=== PATIENT | male | born 1955 | race Caucasian/White ===

== ENCOUNTER 2019-11-09 16:29 | Emergency (ER) | payer OTHER, SELFPAY ==
[2019-11-09 16:38] VITALS: BP 146/79; PULSE 85; RESP 18; TEMP 37.1; O2SAT 98
--- NOTE | 2019-11-09 16:44 | ED.GENADULT ---
HPI - General Adult General Chief complaint: Weakness Stated complaint: body aches/difficulty lifting arms Source: patient and RN notes reviewed Mode of arrival: ambulatory Limitations: no limitations History of Present Illness HPI narrative: This is a 64 years old male presents to the office for an evaluation of generalize weakness for about three weeks. He also reports that his right shoulder is very painful and weaker than usual. States, he could not make a fist this morning due to pain; however it gets better since he took ibuprofen. Denies any unusual activity or strenuous activity or recent injury to his shoulder/arm. He has point of tenderness on his right hand due to carpal tunnel. 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 He also was prescribed Gabapentin for his restless legs and left facial nerve pain back in May. However, he has been taking them like he supposed to until about 3 weeks ago. He also reports night sweat. He recently had colonoscopy; which was normal. He has an appointment with his doctor next Wednesday. Related Data Home Medications Medication Instructions Recorded Confirmed aspirin 81 mg PO DAILY 11/09/19 11/09/19 gabapentin 600 mg PO HS 11/09/19 11/09/19 psyllium seed (with dextrose) 3.4 g PO BID 11/09/19 11/09/19 [fiber] Allergies Allergy/AdvReac Type Severity Reaction Status Date / Time Penicillins Allergy Dyspnea / Verified 11/09/19 16:49 SOB Review of Systems Review of Systems: Narrative: CONSTITUTIONAL: Denies fever, chills. Reports night sweats (mostly his head) EYES: Denies visual changes ENT: Denies rhinorrhea, congestion, sore throat, otalgia. CARDIOVASCULAR: Denies chest pain, palpitation, edema. RESPIRATORY: Denies dyspnea, wheezing, cough. Reports wearing CPAP due to sleep apnea GASTROINTESTINAL: Denies abdominal pain, nausea, vomiting GENITOURINARY: Denies bowel or urinary incontinence SKIN: Denies rash/insect bite/tick bite MUSCULOSKELETAL: Reports right shoulder pain, joints pain NEUROLOGIC: Denies lightheaded/dizziness. Reports generalize feeling malaise All other systems reviewed are negative, except as documented in HPI. [facility] Comments At time of signature, I agree with nursing past medical, surgical, social and family history. There is no relevant family history pertinent to the presenting complaint. Exam Narrative: Exam Narrative: GENERAL: This is a well-nourished, well-developed patient, in no apparent distress. EYES: PERRL. EMOI. Sclera clear/white. Vision is grossly intact. EARS: External ears normal, auditory canals clear and without drainage, TMs normal without perforation. Hearing grossly intact. NOSE: External nose normal with no obvious nasal discharge, nares without redness, no rhinorrhea. THROAT: Mucous membranes moist, posterior pharynx clear. NECK: Neck supple, non-tender without lymphadenopathy, masses or thyromegaly. CARDIOVASCULAR: Regular rate and rhythm without murmurs, gallops, or rubs. RESPIRATORY: Clear to auscultation. Breath sounds equal bilaterally. No wheezes, rales, or rhonchi. GASTROINTESTINAL: Abdomen soft, non-tender, nondistended. Bowel sounds are active. No hepato-splenomegaly, or palpable masses. No guarding. SKIN: warm, intact with no suspicious lesions or rash, good texture and turgor. NEURO: awake, alert, and oriented to person, place and time. There were no obvious focal neurologic abnormalities. Steady gait EXTREMITIES: The R shoulder is without obvious asymmetry or deformity when comparing to R shoulder. No surface trauma, ecchymosis, crepitus. No bony deformity of the humerus head. No erythema, warmth, swelling to palpate. Nontender to palpate over the clavicle, A to C joint, acromion, scapula, or humeral head. Nontender to palpations of the bicipital groove or soft tis
== END 2019-11-09 17:18 | disposition home or self-care (01) ==
PROVIDERS: Emergency Provider Nurse Practitioner
DX: M25.511 Pain in right shoulder (principal); R53.1 Weakness
CPT/HCPCS: 99203; G0463